=== PATIENT | female | born 1960 | race Caucasian/White ===

== ENCOUNTER 2024-04-29 01:05 | Day surgery (SDC) | payer BC, SELFPAY ==
--- NOTE | 2024-04-27 15:56 | SUR.PREOP ---
Report to the Outpatient Waiting Room, entrance under the green pavilion located off [facility], at time 0830 on date 04/29/24. Planned Procedure Time: 1030.? Time changes happen often and if your time is changed the preop area will call you the afternoon before. - You and your visitor will be asked to self-screen and do not enter if you have any COVID symptoms. Please call surgeon if you need to reschedule. - A mask is optional within the hospital at this time. Patients may have clear liquids (water, carbonated beverages, clear teas, apple juice) until 3 hours prior to surgery with a maximum of 20 ounces. - No food from midnight until time of surgery and no smoking - Infants may have breast milk until 4 hours before surgery, infant formula 6 hours prior to surgery. - Children will be allowed to drink immediately following surgery.? If applicable, please bring a bottle or sippy cup to assist with drinking. Juice, water, soda, and popsicles are readily available.? For infants on formula, please bring formula the day of surgery.? Pacifiers are allowed. Take only the following medications with a SIP of water on the morning of surgery: N/A DO NOT STOP ANY OF YOUR OTHER PRESCRIPTION MEDICATIONS PRIOR TO SURGERY EXCEPT THE FOLLOWING Medications to discontinue per physician N/A Date to take last dose Please no make-up, nail dutch, hairspray, perfume, deodorant, or body powder the day of surgery.? No jewelry (including any body piercings) or valuables the day of surgery, leave them at home.? Please take a shower or bath the night before, or the morning of, surgery with an antibacterial soap.? Wear comfortable, loose fitting clothing.? Children are encouraged to wear pajamas. - Jewelry must be removed prior to entering the operating room.? Rings and piercings that are not removed may be cut off. - The hospital will not accept responsibility for valuables.? - Please leave all valuables, including medications, at home the day of surgery. If you are going home after surgery, a licensed mail truck driver must drive you home.? - NO public transportation without another adult if you receive anesthesia. - We recommend that an adult stay with you for 24 hours following discharge. - We also recommend that you do not drive, make important decision, drink alcoholic beverages, or take any drugs that were not prescribed by your health care provider for at least 24 hours after your discharge time. For Pediatric surgeries, we recommend two adults accompany the child home. Follow any additional instructions given to you from your surgeon. Telephone instructions given to FALSH DALEY and asked if any additional questions and then verbalized understanding. Patient advised to call surgeon office or pre surgery nurse liaison [phone] if any additional questions.
[2024-04-27 16:12] VITALS: BMI 29.3
--- NOTE | 2024-04-27 22:09 | PM.IMHP ---
H&P: HPI History of Present Illness Date/Time: 04/27/24 22:09 Chief Complaint: mixed incontinence Narrative: she has mixed incontinence. 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 She has had a bulking agent in the past by another physician Review of Systems Review of Systems: All systems reviewed & are unremarkable except as noted in HPI and below PMFSH Social History Social History Smoking status: Never smoker Living arrangements: with family Spiritual care concerns: No Meds Home Medications and Allergies Home Medications Medication Instructions Recorded Confirmed Type atorvastatin 40 mg tablet 40 mg PO HS 04/27/24 04/27/24 History clonazepam 0.5 mg tablet 0.5 mg PO HS 04/27/24 04/27/24 History donepezil 10 mg tablet 10 mg PO HS 04/27/24 04/27/24 History ergocalciferol (vitamin D2) 1,250 1,250 mcg PO [id number] 04/27/24 04/27/24 History mcg (50,000 unit) capsule (Vitamin D2) fenofibrate micronized 134 mg 134 mg PO DAILY 04/27/24 04/27/24 History capsule losartan 50 mg tablet 50 mg PO DAILY 04/27/24 04/27/24 History meloxicam 7.5 mg tablet 7.5 mg PO DAILY 04/27/24 04/27/24 History omeprazole 20 mg capsule,delayed 20 mg PO DAILY 04/27/24 04/27/24 History release potassium chloride 10 mEq 10 meq PO DAILY 04/27/24 04/27/24 History tablet,extended release Allergies Allergy/AdvReac Type Severity Reaction Status Date / Time No Known Allergies Allergy Verified 04/27/24 15:33 Exam Narrative: no acute distress normal breathing Assessment and Plan Assessment and plan (1) Intrinsic sphincter deficiency (ISD): Code(s): N36.42 - Intrinsic sphincter deficiency (ISD) Status: Acute Assessment and Plan: cystoscopy with bulking agent. Understands the risk of bleeding, infection, lack of efficacy, urinary retention, need for repeat procedures. Also understands it will not help overactive bladder symptoms
[2024-04-29] VITALS (7 sets, daily range): BP systolic 123–179; BP diastolic 57–100; PULSE 55–72; RESP 14–20; TEMP 36.3; O2SAT 98–100; BMI 29.7
--- NOTE | 2024-04-29 07:16 | WPDHPUPDATE1 ---
History and Physical Update Update Date/Time: 04/29/24 07:16 History and Physical has been reviewed, including an updated exam of the patient. There are NO changes in the patient's condition. Risks, benefits, and alternatives have been discussed and questions answered. Patient agrees to proceed with procedure.
--- NOTE | 2024-04-29 08:20 | P.PNAN_ITS ---
Anes - Initial Pre Proc Eval Procedure: Operation Date: 04/29/24 10:30 Proposed Procedures p Cystoscopy, Injection Bulking Agent - Adam Pleitez MD Date/Time: 04/29/24 08:20 Surgeon: Adam Pleitez MD Pre Op Diagnosis: sensory urge incont Patient Data Age: 64 Gender: F Height: 1.52 m Weight: 68.2 kg Allergies Allergy/AdvReac Type Severity Reaction Status Date / Time No Known Allergies Allergy Verified 04/27/24 15:33 Home Medications Medication Instructions Recorded Confirmed Type atorvastatin 40 mg tablet 40 mg PO HS 04/27/24 04/27/24 History clonazepam 0.5 mg tablet 0.5 mg PO HS 04/27/24 04/27/24 History donepezil 10 mg tablet 10 mg PO HS 04/27/24 04/27/24 History ergocalciferol (vitamin D2) 1,250 1,250 mcg PO [id number] 04/27/24 04/27/24 History mcg (50,000 unit) capsule (Vitamin D2) fenofibrate micronized 134 mg 134 mg PO DAILY 04/27/24 04/27/24 History capsule losartan 50 mg tablet 50 mg PO DAILY 04/27/24 04/27/24 History meloxicam 7.5 mg tablet 7.5 mg PO DAILY 04/27/24 04/27/24 History omeprazole 20 mg capsule,delayed 20 mg PO DAILY 04/27/24 04/27/24 History release potassium chloride 10 mEq 10 meq PO DAILY 04/27/24 04/27/24 History tablet,extended release Patient hx anesthesia problems: none Family hx anesthesia problems: none Results Review: All pre-operative results and documents have been reviewed as part of the pre- operative evaluation. [facility] Past Medical History Medical History (Updated 04/29/24 @ 08:21 by Chuck Hamilton DO) Dementia Dystonia GERD (gastroesophageal reflux disease) Hyperlipidemia Hypertension Lewy body dementia Surgical History Surgical History (Updated 04/29/24 @ 08:21 by Chuck Hamilton DO) S/P deep brain stimulator placement Social History Social History Smoking status: Never smoker Living arrangements: with family Spiritual care concerns: No Anes - Eval Final PreProcedure Day of Procedure 04/29/24 08:20 Patient weight: overweight Heart: regular rate and rhythm Lungs: clear to auscultation Airway: Mallampati scale class II Neurological: alert and oriented Last oral intake: >/= 8 hours ASA classification: III Emergent: no Anesthetic plan: proceed Anesthesia type and monitoring: general GIVS and standard monitoring Results Review: All pre-operative results and documents have been reviewed as part of the pre- operative evaluation. Informed Consent: The patient's anesthetic plan and its attendant risks and benefits were discussed with the patient/family/POA. Questions were solicited and answers provided to the satisfaction of the patient/family/POA.
[2024-04-29] MEDS: ceFAZolin 2 GM/D5W 50 ML 2 GM/50 ML BAG IVPB (10:40)
[2024-04-29] MEDS: LACTATED RINGERS 1,000 ML 30 ML IV CONT (10:50)
--- NOTE | 2024-04-29 11:03 | W.PM.PROC2 ---
Procedure Note - Detailed Date of Procedure 04/29/24 Pre-op Diagnosis Intrinsic sphincter deficiency Post-op Diagnosis Same Procedure Performed Cystoscopy with suburethral injection of implant material Surgeon Adam Pleitez MD Anesthesia MAC Indications This is a woman with mixed urinary incontinence. She has neurogenic overactive bladder due to dementia and Parkinson's. She has intrinsic sphincter deficiency as well she has had a previous bulking agent over 1 year ago. She presents for repeat bulking agent. I spoke with her . He understands is for leakage with coughing, sneezing, activities, movement. He understands it will not help her urge incontinence symptoms or nocturia. Stand the risks of bleeding, infection, and need for catheterization. They understand the procedure likely be repeated over time. Under static suspected success rates. Agree to proceed Findings Uncomplicated bulking agent Description of Procedure Patient was correctly identified. Informed consent obtained. She was brought to the operating room. She was given monitored anesthesia care. She was placed in dorsal thigh position. She was prepped and draped in a sterile fashion. Time-out performed. Cystoscopy revealed a normal-appearing bladder without significant abnormalities. No tumors or stones. No abnormal red patches. No foreign bodies. Urethra did not show any remnants of previous bulking agent. I chose a site mid urethra 2 cm distal bladder neck. I injected bulking agent circumferentially. I used 1-1/2 syringe of bulking material. There was excellent bulking effect. Her bladder was left partially full. She was awakened transferred to PACU in stable condition Estimated Blood Loss 0 Pathology None sent Complications No immediate complications Condition Stable Disposition PACU
== END 2024-04-29 13:05 | disposition home or self-care (01) ==
PROVIDERS: Visit Provider Urology
PROC: 3E0K8GC Introduction of Other Therapeutic Substance into Genitourinary Tract, Via Natural or Artificial Opening Endoscopic (ICD-10-PCS; CPT 51715; principal; 2024-04-29 10:30)
DX: N36.42 Intrinsic sphincter deficiency (ISD) (principal); I10 Essential (primary) hypertension; E78.5 Hyperlipidemia, unspecified; G31.83 Neurocognitive disorder with Lewy bodies; F02.80 Dementia in other diseases classified elsewhere, unspecified severity, without behavioral disturbance, psychotic disturbance, mood disturbance, and anxiety; K21.9 Gastro-esophageal reflux disease without esophagitis
CPT/HCPCS: 51715; J0690; J1596; J2250; J2405; J2704; J7120; L8606